=== PATIENT | male | born 1945 | race Caucasian/White ===

== ENCOUNTER → 2017-04-06 | Outpatient (CLI) | payer OTHER | LOC: BMCIMAGING 14:58 | PROVIDERS: ATTEND Internal Medicine | DX: M51.26 Other intervertebral disc displacement, lumbar region (principal) ==

== ENCOUNTER → 2017-04-28 | Outpatient (CLI) | payer OTHER | LOC: FIMAGING 12:12 | PROVIDERS: ATTEND Internal Medicine | DX: M54.30 Sciatica, unspecified side (principal); M54.5 Low back pain; M48.06 Spinal stenosis, lumbar region; M51.36 Other intervertebral disc degeneration, lumbar region; M51.26 Other intervertebral disc displacement, lumbar region ==

== ENCOUNTER → 2017-08-24 | Outpatient (CLI) | payer OTHER | LOC: BMCIMAGING 10:01 | PROVIDERS: ATTEND Nurse Practitioner | DX: S33.140A Subluxation of L4/L5 lumbar vertebra, initial encounter (principal); Z96.643 Presence of artificial hip joint, bilateral ==

== ENCOUNTER 2017-11-10 05:46 | Observation (INO) | payer OTHER ==
[2017-11-10] MEDS ORDERED: ceFAZolin 2 GM/SWFI 2 GM/20 ML SYR IVP ONE (06:05)
[2017-11-10] MEDS ORDERED: LR 1,000 ML IV ONE (06:06)
[2017-11-10] MEDS ORDERED: LIDOCAINE 1% 2 ML INJ ID PRN (06:06)
--- NOTE | 2017-11-10 06:31 | PDHPUP ---
History & Physical Update H&P update statement: This history and physical update is based on an assessment of the patient which was completed after admission or registration (within 24 hours), but prior to the surgery/procedure. H&P update: H&P reviewed & patient examined, no change in patient's condition since H&P completed
[2017-11-10] MEDS ORDERED: BUPIVACAINE 0.25% 30 ML SDV ONE (06:40)
[2017-11-10] MEDS ORDERED: THROMBIN (BOVINE) 20,000 UNIT VIAL TP ONE (06:41)
[2017-11-10] MEDS ORDERED: CHLORHEXIDINE GLUC HIBICLENS 118 ML BTL TP ONE (06:41)
[2017-11-10] MEDS ORDERED: THROMBIN (BOVINE) 5,000 UNIT VIAL TP ONE (06:42)
[2017-11-10] MEDS ORDERED: DEPO METHYLPREDNISOLONE 40 MG/ML SDV ONE (06:43)
[2017-11-10] MEDS ORDERED: BACITRACIN 50,000 UNITS/10 ML SYR IRR ONE (06:45)
[2017-11-10] MEDS ORDERED: MIDAZOLAM 2 MG/2 ML VIAL IVP ONE (07:12)
[2017-11-10] MEDS ORDERED: MIDAZOLAM 2 MG/2 ML VIAL ONE (07:17)
--- NOTE | 2017-11-10 07:17 | PDANEPAE ---
ANE History of Present Illness L4 to 5 Laminectomy ANE Past Medical History - Cardiovascular History Hx Hypertension: No Hx Arrhythmias: No Hx Chest Pain: No Hx Coronary Artery / Peripheral Vascular Disease: No Hx CHF / Valvular Disease: No Hx Palpitations: No - Pulmonary History Hx COPD: No Hx Asthma/Reactive Airway Disease: No Hx Recent Upper Respiratory Infection: No Hx Oxygen in Use at Home: No Hx Sleep Apnea: Yes Sleep Apnea Screening Result - Last Documented: Positive Pulmonary History Comment: HANS USES C-PAP INSTRUCTED TO BRING DOS - Neurologic History Hx Cerebrovascular Accident: No Hx Seizures: No Hx Dementia: No - Endocrine History Hx Diabetes: No Obesity: moderate, severe - Renal History Hx Renal Disorders: Yes Renal History Comment: BPH - Liver History Hx Hepatic Disorders: No - Neurological & Psychiatric Hx Hx Neurological and Psychiatric Disorders: No - Cancer History Hx Cancer: Yes Cancer History Comment: SKIN - Congenital Disorder History Hx Congenital Disorders: No - GI History GERD: no, mild Hx Gastrointestinal Disorders: No - Other Health History Other Health History: SPINAL STENOSIS - Chronic Pain History Chronic Pain: Yes (GLUTES,THIGHS,LOWER BACK) - Surgical History Prior Surgeries: BETO TOTAL HIP ANE Review of Systems Review of Systems: - Exercise capacity METS (RN): 4 METS ANE Patient History - Allergies Allergies/Adverse Reactions: No Known Allergies Allergy (Unverified 10/21/17 10:20) - Home Medications Home Medications: Aleve DAILY 10/21/17 [Last Taken 11/03/17] Herbal Drugs DAILY 10/21/17 [Last Taken 11/03/17] SIMVASTATIN HS 10/21/17 [Last Taken 11/09/17] - NPO status NPO Since - Liquids (Date): 11/09/17 NPO Since - Liquids (Time): 22:30 NPO Since - Solids (Date): 11/09/17 NPO Since - Solids (Time): 21:00 - Anes Hx Anes Hx: no prior problems - Smoking Hx Smoking Status: Former smoker Marijuana use: Yes - Alcohol Use Alcohol Use: Heavy - Family Anes Hx Family Anes Hx: none Family Hx Anesthesia Complications: NEG ANE Labs/Vital Signs - Vital Signs Blood Pressure: 130/74 Heart Rate: 63 Respiratory Rate: 16 O2 Sat (%): 92 Height: 171.45 cm Weight: 112.491 kg ANE Physical Exam - Airway Neck exam: decreased ROM Mallampati Score: Class 4 Mouth exam: normal dental/mouth exam - Pulmonary Pulmonary: no respiratory distress - Cardiovascular Cardiovascular: regular rate and rhythym, no murmur, rub, or gallop - ASA Status ASA Status: III ANE Anesthesia Plan Anesthesia Plan: general endotracheal anesthesia Specialized Airway: video laryngoscope
[2017-11-10] MEDS ORDERED: fentaNYL 250 MCG/5 ML INJ ONE (07:25)
[2017-11-10] MEDS ORDERED: PROPOFOL/EMULSION 500 MG/50 ML BOTTLE IV ONE ×2 (07:25)
[2017-11-10] MEDS ORDERED: ROCURONIUM 50 MG/5 ML VIAL ONE (07:26)
[2017-11-10] MEDS ORDERED: SUCCINYLCHOLINE CHLORIDE 200 MG/10 ML SYR IVP ONE (07:26)
[2017-11-10] MEDS ORDERED: PETROLAT,WHT/MIN OIL/SOD CHL 3.5 GM OPHT.OINT ONE (07:30)
[2017-11-10] MEDS ORDERED: HYDROmorphONE/DILAUDID 1 MG/ML INJ IVP PRN ×2 (07:33→10:20)
[2017-11-10] MEDS ORDERED: LACTULOSE 20 GM/30 ML UDCUP PO PRN (07:33)
[2017-11-10] MEDS ORDERED: ONDANSETRON DISINTEGRATING 4 MG TAB PO PRN (07:33)
[2017-11-10] MEDS ORDERED: ONDANSETRON 4 MG/2 ML VIAL IVP PRN ×2 (07:33→10:20)
[2017-11-10] MEDS ORDERED: diphenhydrAMINE 25 MG CAP PO PRN (07:33)
[2017-11-10] MEDS ORDERED: MAGNESIUM HYDROXIDE 30 ML UDCUP PO PRN (07:33)
[2017-11-10] MEDS ORDERED: BISACODYL 10 MG SUPP PR PRN (07:33)
[2017-11-10] MEDS ORDERED: POLYETHYLENE GLYCOL 3350 17 GM PKT PO PRN (07:33)
[2017-11-10] MEDS ORDERED: GLYCOPYRROLATE 0.2 MG/1 ML VIAL ONE (07:41)
[2017-11-10] MEDS ORDERED: NS W/ 20 KCl/L 1,000 ML IV SCH (07:45)
[2017-11-10] MEDS ORDERED: DEXAMETHASONE 4 MG/ML VIAL ONE ×2 (08:12)
[2017-11-10] MEDS ORDERED: fentaNYL 100 MCG/2 ML INJ ONE ×2 (08:57→10:26)
[2017-11-10] MEDS ORDERED: PHENYLEPHRINE HCL 100 MCG/ML SYR ONE (09:05)
[2017-11-10] MEDS ORDERED: ONDANSETRON 4 MG/2 ML VIAL ONE ×2 (09:57)
[2017-11-10] MEDS ORDERED: DIAZEPAM 5 MG/ML 1 ML SYR IVP PRN (10:20)
[2017-11-10] MEDS ORDERED: NALOXONE HCL 0.4 MG/ML INJ IVP PRN (10:20)
[2017-11-10] MEDS ORDERED: HYDROCODONE/APAP 5/325 TAB PO PRN (10:20)
[2017-11-10] MEDS ORDERED: PROMETHAZINE HCL 25 MG/ML INJ IVP PRN (10:20)
[2017-11-10] MEDS: fentaNYL 100 MCG/2 ML INJ IVP PRN ×2 (10:27→10:43)
--- NOTE | 2017-11-10 10:37 | SOAPPROG ---
SOAP Progress Note Assessment/Plan: Assessment: Plan: Subjective: Post Op Visit S: Awake and alert. Pt with some expected lower back pain O: AFVSS/PERRLA/EOMI no droop CN 2-12 grossly intact +lt touch 5/5 BUE/BLE = CDI A/P: 71 yo male that is s/p L4/5 laminectomy -orders in place -call with any questions or concerns -admit overnight due to sleep apnea hx for observation -pt seen by Dr Kerr Objective: Vital Signs Temp Pulse Resp BP Pulse Ox 36.1 C 63 18 140/88 H 99 11/10/17 10:17 11/10/17 07:19 11/10/17 10:17 11/10/17 10:17 11/10/17 10:17 ICD10 Worksheet Patient Problems: Problems Problem Status Onset Lumbar radicular pain Acute Lumbar stenosis Acute - ICD10 Problem Qualifiers (1) Lumbar stenosis (2) Lumbar radicular pain
[2017-11-10] MEDS: SENNOSIDES/DOCUSATE SODIUM TAB PO SCH ×2 (11:24→21:18)
[2017-11-10] MEDS: FAMOTIDINE 20 MG TAB PO SCH ×2 (11:24→21:18)
[2017-11-10] MEDS: oxyCODONE IR 5 MG TAB PO PRN ×2 (11:36→15:56)
[2017-11-10] MEDS: METHOCARBAMOL 750 MG TAB PO PRN ×2 (11:37→17:57)
--- NOTE | 2017-11-10 12:34 | GOP ---
[f rep st] OPERATIVE REPORT DATE OF OPERATION: 11/10/2017 SURGEON: Kirill Kerr MD DIRECTOR OF VITAL STATISTICS: Mingo Crane PA-C PREOPERATIVE DIAGNOSIS: Lumbar stenosis L4-5, mild lumbar spondylolisthesis L4-5, bilateral lumbosac ral radiculopathy. POSTOPERATIVE DIAGNOSIS: Lumbar stenosis L4-5, mild lumbar spondylolisthesis L4-5, bilateral lumbosa cral radiculopathy. PROCEDURE PERFORMED: Lumbar laminectomy, bilateral medial facetectomy, bilateral decompressions L4-5 ([id number]), microscope. FINDINGS: ESTIMATED BLOOD LOSS: 75 cc. INDICATIONS: The patient is an elderly gentleman with bilateral lumbosacral radiculopathy and neurog enic claudication. He has actually 3 level lumbar stenosis at L2-3, L3-4, L4-5, and a mild spondylol isthesis at L4-5. The worst stenosis is at L4-5 alone. I felt this is the symptomatic level. I did not think L2-3 L3-4 were symptomatic. I suggested a single-level decompression. He knew there was stenosis at L4 and that we would not treat this. The risk of continued symptoms was discussed, altho ugh I thought this was low. He knew there was risk of CSF leak, nerve injury, and infection, and he did want to proceed. He knew there was a small risk of a spinal instability and the need for an inst rumented spine fusion at some point in the future, but I thought again this risk was quite low. DESCRIPTION OF PROCEDURE: The patient was taken to the operating room, placed in supine position. G eneral anesthesia was begun. He was flipped prone onto the Huey frame. Care was taken to pad all points of contact. His back was sterilely prepped and draped in the usual fashion. A localizing x-ray was taken. We made a midline incision 33 cm in length. The subcutaneous tissue w as dissected using Bovie cautery down through the fascia and a subperiosteal dissection was made down the L4-5 lamina. Self-retaining retractors placed. A localizing x-ray was taken. We removed the i nferior L4 spinous process and the very rostral tip of the L5 spinous process. We drilled around the of the rostral arch of L5, removing the very rostral most part of the L4-L5 and extending this up in a superior fashion along the superior articular process of L5 bilaterally and performed a medial fac etectomy. We also removed the inferior L4 lamina bilaterally, opened ligamentum flavum, and under th e microscope, decompressed both sides at L4-5. There was very severe stenosis. We decompressed from the mid L5 pedicle up to the inferior L4 pedicle. A nice decompression was obtained. There was some adherence to the dura of the hypertrophic facets, but we were able to dissect all this free and clear, except a tiny portion along the inferior margin of our laminotomy on the left side a t L4 where we left a small residual ligamentum flavum, but an excellent decompression had been perfor med. This was simply just stuck to the dura, but we did perform a decompression. We irrigated with antibiotic saline solution and placed some Depo-Medrol over the L5 roots bilaterall y, shot a final x-ray confirming the location of our surgery. We then closed the incision in multipl e layers using Vicryl sutures. Steri-Strips were applied the skin, and the patient was reversed from anesthesia, extubated, and transferred to recovery room in stable condition. COMPLICATIONS: None. /[id number]/MODL
--- NOTE | 2017-11-10 12:52 | POSTANESTH ---
Post Anesthetic Evaluation Cardiovascular Status: Normal, Stable Respiratory Status: Normal, Stable Level of Consciousness/Mental Status: Can Participate in Eval Pain Control: Adequate, Prn Tx Ordered Nausea/Vomiting Control: Adequate, Prn Tx Ordered Complications Possibly Related to Anesthesia: None Noted
[2017-11-10] MEDS ORDERED: ceFAZolin 2 GM/DEXTROSE 100 ML IV SCH (14:00)
[2017-11-10] MEDS: ACETAMINOPHEN 500 MG TAB PO SCH ×2 (14:42→21:18)
[2017-11-10] MEDS: ceFAZolin 2 GM/SWFI 2 GM/20 ML SYR IVP SCH ×2 (14:43→21:18)
[2017-11-10] MEDS ORDERED: HYDROmorphone HCL/NS 0.5 MG/ML SYR IVP PRN (20:05)
[2017-11-10 20:06] VITALS: RESP 16
[2017-11-11] MEDS: ACETAMINOPHEN 500 MG TAB PO SCH (05:23)
[2017-11-11 07:18] VITALS: BP 125/72; PULSE 75; TEMP 97.4; O2SAT 94
--- NOTE | 2017-11-11 07:23 | NEUSURGPN ---
Date of Surgery: 11/10/17 Post Op Day: 1 Assessment/Plan: Assessment: 71 yo male that is s/p L4/5 laminectomy POD #1 Plan: -s/p L4/5 laminectomy: pt states expected lower back pain, legs feel better -PT/OT this am and if passes we will dc later today -no bending or twisting -orders in place -call with any questions or concerns -we admitted overnight due to sleep apnea hx for observation-stable overnight -pt ready for dc home today -pt seen by Dr Kerr as well -follow up in 2 weeks for a post op check Subjective: Awake and alert. NAD. Eating/drinking and voiding. No f/c/n/v/d. No patel/neck/ chest/abd or gu complaints. Objective: AFVSS/PERRLA/EOMI no droop CN 2-12 grossly intact +lt touch 5/5 BUE/BLE = CDI Neuro Check Frequency: per routine Urinary Catheter in Place: No - Physician Discussed Patient with Dr.: Cirilo Patient Seen by : Cirilo Neurosurgery Physical Exam - Vitals, I&O, Labs I and O 11/10/17 11/11/17 11/12/17 05:59 05:59 05:59 Intake Total 4247 Balance 4247 Weight 112.491 kg Intake: Oral (ml) 2510 IV Intake (ml) 1630 IV Infused (ml) 107 Lr 1,000 ml @ KVO IV ONCE 107 ONE Rx#:[id number] Other: Number of Voids Toilet 3 Vital Signs Temp Pulse Resp BP Pulse Ox 36.3 C 75 16 125/72 H 94 11/11/17 07:16 11/11/17 07:16 11/11/17 07:16 11/11/17 07:16 11/11/17 07:16 ICD10 Worksheet Patient Problems: Problems Problem Status Onset Lumbar radicular pain Acute Lumbar stenosis Acute - ICD10 Problem Qualifiers (1) Lumbar stenosis (2) Lumbar radicular pain
[2017-11-11] MEDS: METHOCARBAMOL 750 MG TAB PO PRN (07:44)
[2017-11-11] MEDS: SENNOSIDES/DOCUSATE SODIUM TAB PO SCH (07:44)
[2017-11-11] MEDS: FAMOTIDINE 20 MG TAB PO SCH (07:45)
[2017-11-11] MEDS ORDERED: PNEUMOC 13-VAL CONJ-DIP CRM/PF 0.5 ML SYR IM ONE ×2 (08:17→11:00)
--- NOTE | 2017-11-11 09:34 | ASMTCMCOM ---
CM Note CM Note Notes: 11/11/2017 Case Management Note Met w/pt and Cayla [phone]. There are no case management d/c needs identified. Pt has strong family support and plans to follow up outpatient for any needs. [facility] to transport home. PT to evaluate later this morning. Case Management will adjust d/c plan if needed. Case Management d/c poc: anticipating independent with family support with follow up as directed. Case Management available if needs change. Date Signed: 11/11/2017 09:33 AM Electronically Signed By:Lizzie Hernandez RN
[2017-11-13] MEDS ORDERED: ENOXAPARIN 40 MG/0.4 ML SYR SC SCH (09:00)
== END 2017-11-11 11:39 | disposition home or self-care (01) ==
LOC: FSGY 05:46 → F3E 06:35 → F3N 11:08
PROVIDERS: ADMIT Neurological Surgery; ATTEND Neurological Surgery
DX: M48.061 Spinal stenosis, lumbar region without neurogenic claudication (principal); M43.16 Spondylolisthesis, lumbar region; M54.16 Radiculopathy, lumbar region; G47.30 Sleep apnea, unspecified; Z96.643 Presence of artificial hip joint, bilateral; Z23 Encounter for immunization
CPT/HCPCS: 63047; 76001; 90670; 97161; 97165; 97535; G0009; G0378; G8978; G8979; G8980; G8987; G8988; G8989; J0171; J0330; J0690; J1030; J1100; J2250; J2370; J2405; J2704; J3010

== ENCOUNTER → 2018-09-09 | Outpatient (CLI) | payer OTHER | LOC: FIMAGING 18:20 | PROVIDERS: ATTEND Nurse Practitioner | DX: M54.16 Radiculopathy, lumbar region (principal) ==

== ENCOUNTER → 2018-09-23 | Outpatient (CLI) | payer OTHER | LOC: BMCIMAGING 09:44 | PROVIDERS: ATTEND Nurse Practitioner | DX: M51.36 Other intervertebral disc degeneration, lumbar region (principal); M43.16 Spondylolisthesis, lumbar region ==

== ENCOUNTER → 2019-03-07 | Outpatient (CLI) | payer OTHER | LOC: FIMAGING 09:37 ==